=== PATIENT | female | born 1940 | race Native Hawaiian/Other Pacific Islander ===

== ENCOUNTER 2016-10-08 11:54 | Outpatient (CLI) | payer OTHER | END 2016-10-08 22:09 | disposition home or self-care (01) | LOC: LABW 11:54 | DX: R73.09 Other abnormal glucose (principal); E03.8 Other specified hypothyroidism | CPT/HCPCS: 36415; 83036; 84443 ==

== ENCOUNTER 2016-12-21 07:25 | Outpatient (CLI) | payer OTHER ==
[2016-12-21 07:56] LABS: PLATELET COUNT 243 K/uL (152-353)
[2016-12-21 08:21] LABS: POTASSIUM 4.5 mmol/L (3.6-5.2); SODIUM 139 mmol/L (136-145)
== END 2016-12-21 19:34 | disposition home or self-care (01) ==
LOC: LABW 07:25
PROVIDERS: Internal Medicine
DX: I73.00 Raynaud's syndrome without gangrene (principal); E11.9 Type 2 diabetes mellitus without complications; R82.99 Other abnormal findings in urine
CPT/HCPCS: 36415; 80053; 80061; 81000; 82043; 82085; 82550; 82570; 83036; 83516; 84439; 84443; 85027; 85651; 86038; 86039; 86225; 86235; 86430; 87077; 87086; 87088; 87186

== ENCOUNTER 2017-07-11 10:14 | Outpatient (CLI) | payer OTHER ==
[2017-07-11 11:33] LABS: PLATELET COUNT 238 K/uL (152-353)
[2017-07-11 12:07] LABS: POTASSIUM 4.2 mmol/L (3.6-5.2); SODIUM 138 mmol/L (136-145)
== END 2017-07-11 19:31 | disposition home or self-care (01) ==
LOC: LABW 10:14
PROVIDERS: Internal Medicine
DX: E03.8 Other specified hypothyroidism (principal); M34.89 Other systemic sclerosis
CPT/HCPCS: 36415; 80053; 80061; 81000; 84439; 84443; 85027; 85651

== ENCOUNTER 2018-01-14 09:38 | Outpatient (CLI) | payer OTHER ==
[2018-01-14 10:24] LABS: PLATELET COUNT 443 K/uL (152-353)
[2018-01-14 10:51] LABS: POTASSIUM 3.9 mmol/L (3.6-5.2)
== END 2018-01-14 22:29 | disposition home or self-care (01) ==
LOC: LABW 09:38
PROVIDERS: Internal Medicine
DX: J40 Bronchitis, not specified as acute or chronic (principal); R82.99 Other abnormal findings in urine; R79.89 Other specified abnormal findings of blood chemistry; E03.8 Other specified hypothyroidism
CPT/HCPCS: 36415; 80053; 80061; 81000; 84439; 84443; 85027; 87077; 87086; 87088; 87186

== ENCOUNTER 2018-03-14 09:32 | Outpatient (CLI) | payer OTHER ==
[2018-03-14 10:20] LABS: PLATELET COUNT 298 K/uL (152-353)
== END 2018-03-14 19:16 | disposition home or self-care (01) ==
LOC: LABW 09:32
PROVIDERS: Internal Medicine
DX: D50.8 Other iron deficiency anemias (principal); R53.1 Weakness
CPT/HCPCS: 36415; 80053; 81000; 84443; 85027; 85379; 87077; 87086; 87088; 87186

== ENCOUNTER 2018-07-09 09:03 | Outpatient (CLI) | payer OTHER | END 2018-07-09 19:16 | disposition home or self-care (01) | LOC: US 09:03 | DX: Z12.31 Encounter for screening mammogram for malignant neoplasm of breast (principal); Z13.820 Encounter for screening for osteoporosis; Z13.6 Encounter for screening for cardiovascular disorders ==

== ENCOUNTER 2018-07-11 13:41 | Outpatient (CLI) | payer OTHER | END 2018-07-11 20:19 | disposition home or self-care (01) | LOC: LAB 13:41 | DX: N39.0 Urinary tract infection, site not specified (principal) | CPT/HCPCS: 87086; 87088 ==

== ENCOUNTER 2019-01-01 08:38 | Outpatient (CLI) | payer OTHER ==
[2019-01-01 09:09] LABS: PLATELET COUNT 249 K/uL (152-353)
[2019-01-01 09:35] LABS: POTASSIUM 4.1 mmol/L (3.6-5.2)
== END 2019-01-01 21:40 | disposition home or self-care (01) ==
LOC: LABW 08:38
PROVIDERS: Internal Medicine
DX: C16.9 Malignant neoplasm of stomach, unspecified (principal); E03.8 Other specified hypothyroidism; K52.9 Noninfective gastroenteritis and colitis, unspecified; R82.998 Other abnormal findings in urine
CPT/HCPCS: 36415; 80053; 81000; 82272; 83630; 84439; 84443; 85027; 87015; 87045; 87077; 87086; 87088; 87186; 87206; 87324; 87328; 87329; 87449; 87507; 87899

== ENCOUNTER 2019-01-28 10:11 | Outpatient (CLI) | payer OTHER | END 2019-01-28 22:25 | disposition home or self-care (01) | LOC: RAD 10:11 | DX: R13.19 Other dysphagia (principal) ==

== ENCOUNTER 2019-02-12 22:30 | Emergency (ER) | payer OTHER ==
[~2019-02-12] VITALS: Ht 160 cm; Wt 56.6 kg
[2019-02-12 22:47] VITALS: TEMP 98.3
[2019-02-13 00:39] LABS: PLATELET COUNT 270 K/uL (152-353)
[2019-02-13 01:58] VITALS: BP 154/82
== END 2019-02-13 02:00 | disposition home or self-care (01) ==
LOC: ED 22:30
PROVIDERS: Internal Medicine
DX: N30.80 Other cystitis without hematuria (principal); E87.1 Hypo-osmolality and hyponatremia; R11.0 Nausea; C16.9 Malignant neoplasm of stomach, unspecified; R55 Syncope and collapse
CPT/HCPCS: 80053; 81000; 85027; 87086; 87088; 96372; 99283; J0696

== ENCOUNTER 2019-02-26 22:37 | Emergency (ER) | payer OTHER ==
[~2019-02-26] VITALS: Ht 160 cm; Wt 52.6 kg
[2019-02-26] MEDS ORDERED: AMOXICILLIN250 M2 PO (23:07)
[2019-02-26] MEDS ORDERED: TIROSINT50 MCG PO (23:07)
[2019-02-26] MEDS ORDERED: MISTLETOE (23:09)
[2019-02-26] MEDS ORDERED: ONDA4TAB3 PO (23:10)
[2019-02-26 23:47] LABS: PLATELET COUNT 255 K/uL (152-353)
[2019-02-27 00:07] LABS: POTASSIUM 4.7 mmol/L (3.6-5.2)
[2019-02-27 01:14] VITALS: BP 103/56; TEMP 97.5
== END 2019-02-27 01:22 | disposition home or self-care (01) ==
LOC: ED 22:37
PROVIDERS: Internal Medicine
DX: K92.2 Gastrointestinal hemorrhage, unspecified (principal); D64.89 Other specified anemias; C15.9 Malignant neoplasm of esophagus, unspecified; C16.9 Malignant neoplasm of stomach, unspecified
CPT/HCPCS: 80053; 85027; 86850; 86900; 86901; 99283

== ENCOUNTER 2019-03-31 12:55 | Outpatient (CLI) | payer OTHER ==
[~2019-03-31 12:55] MED LIST: AMOXICILLIN250 M2 PO; MISTLETOE; ONDA4TAB3 PO; TIROSINT50 MCG PO
[2019-03-31 13:21] LABS: PLATELET COUNT 214 K/uL (152-353)
== END 2019-03-31 20:02 | disposition home or self-care (01) ==
LOC: LABW 12:55
PROVIDERS: Internal Medicine
DX: D50.8 Other iron deficiency anemias (principal)
CPT/HCPCS: 36415; 83540; 85027

== ENCOUNTER 2019-10-02 10:35 | Outpatient (CLI) | payer OTHER ==
[~2019-10-02] VITALS: Ht 154.9 cm; Wt 54.4 kg
== END 2019-10-02 18:00 | disposition home or self-care (01) ==
LOC: INF 10:35
DX: E86.0 Dehydration (principal)
CPT/HCPCS: 96365; 96366; J3490

== ENCOUNTER 2019-10-07 09:44 | Day surgery (SDC) | payer OTHER ==
[~2019-10-07] VITALS: Ht 30.5 cm; Wt 0.5 kg
== END 2019-10-07 16:50 | disposition home or self-care (01) ==
LOC: OR 09:44
PROC: 0DH63UZ Insertion of Feeding Device into Stomach, Percutaneous Approach (ICD-10-PCS; principal; 2019-10-07)
PROC: 05HM33Z Insertion of Infusion Device into Right Internal Jugular Vein, Percutaneous Approach (ICD-10-PCS; 2019-10-07)
PROC: B543ZZA Ultrasonography of Right Jugular Veins, Guidance (ICD-10-PCS; 2019-10-07)
DX: I87.8 Other specified disorders of veins (principal); C16.9 Malignant neoplasm of stomach, unspecified; R13.19 Other dysphagia
CPT/HCPCS: 82607; 82728; 83540; 83550; C1788; J0690; J1642; J1644; J2001; J2250; J2405; J2704; J3010; J3490